=== PATIENT | female | born 1975 | race African-American/Black ===

== ENCOUNTER 2017-05-21 12:43 | Emergency (ER) | payer BC ==
[2017-05-21 12:50] VITALS: BP 181/114; PULSE 81; TEMP 97.9; BMI 37.5
--- NOTE | 2017-05-21 13:27 | PDOC ---
History of Present Illness - General Chief Complaint: Respiratory Stated Complaint: HEADACHE Time Seen by Provider: 05/21/17 13:12 History Source: Patient Exam Limitations: No Limitations - History of Present Illness Initial Comments: 05/21/17 13:28 This is a 41-year-old woman with past medical history of seasonal ALLERGIES and hypertension who presents to emergency department with nasal congestion, frontal headache, sinus pain for the past 14 days. Patient states over the past 5 days she has increased her use of loratadine as well as nasal decongestant spray. Patient also states intermittent use of her blood pressure medication due to side effects that she experiences. She denies any sick contacts. She denies fevers, chills, chest pain, shortness of breath, cough, dizziness. Past History - Past Medical History Allergies/Adverse Reactions: Allergies Allergy/AdvReac Type Severity Reaction Status Date / Time No Known Allergies Allergy Verified 05/21/17 12:50 Home Medications: Ambulatory Orders Hydrochlorothiazide [Hctz] 12.5 mg PO DAILY 10/08/11 Metoprolol Tartrate [Lopressor -] 40 mg PO DAILY 10/08/11 Metformin HCl 500 mg PO BID 11/12/14 Amox-Tr/K Cl [Augmentin - 875Mg Tablet] 1 tab PO BID #20 tablet 05/21/17 COPD: No Diabetes: Yes (pre diabetic) GI Disorders: Yes (ULCER.) HTN: Yes Thyroid Disease: Yes - Suicide/Smoking/Psychosocial Hx Smoking Status: No Smoking History: Never smoked Number of Cigarettes Smoked Daily: 0 Hx Alcohol Use: No Drug/Substance Use Hx: No Substance Use Type: None Respiratory Specific PMHX - Complaint Specific PMHX Bronchitis: No Review of Systems - Review of Systems Able to Perform ROS?: Yes Is the patient limited Maltese proficient: No Constitutional: No: Symptoms Reported HEENTM: Yes: See HPI Respiratory: No: Symptoms reported Cardiac (ROS): No: Symptoms Reported ABD/GI: No: Symptoms Reported : No: Symptoms Reported Musculoskeletal: No: Symptoms Reported Integumentary: No: Symptoms Reported Neurological: No: Symptoms reported Endocrine: No: Symptoms Reported *Physical Exam - Vital Signs Last Vital Signs Temp Pulse Resp BP Pulse Ox 97.9 F 81 18 181/114 100 05/21/17 12:46 05/21/17 12:46 05/21/17 12:46 05/21/17 12:46 05/21/17 12:46 - Physical Exam General Appearance: Yes: Appropriately Dressed. No: Apparent Distress HEENT: positive: TMs Normal, Pharynx Normal, Nasal Congestion, Sinus Tenderness Neck: positive: Trachea midline, Supple Respiratory/Chest: positive: Lungs Clear, Normal Breath Sounds. negative: Respiratory Distress, Accessory Muscle Use Cardiovascular: positive: Regular Rhythm, Regular Rate. negative: Murmur Gastrointestinal/Abdominal: positive: Normal Bowel Sounds, Soft. negative: Tender Musculoskeletal: positive: Normal Inspection. negative: CVA Tenderness Extremity: positive: Normal Capillary Refill, Normal Inspection, Normal Range of Motion Integumentary: positive: Normal Color, Dry, Warm Neurologic: positive: restaurant assistant II-XII NML intact, Fully Oriented, Alert, Normal Mood/ Affect, Normal Response, Motor Strength /5 Medical Decision Making - Medical Decision Making 05/21/17 13:30 A/P: 41-year-old female with history of hypertension and is analogies with 2 weeks of nasal congestion and sinus pain TMs within normal limits. External auditory canals clear and free of erythema or exudates. Oropharynx within normal limits. Tenderness to maxillary and frontal sinuses upon light palpation. Nasal congestion present. Lungs clear to auscultation bilaterally. RRR. No murmur, rub or gallop present. Abdomen soft nontender nondistended. Cranial nerves II through XII intact. Gait steady. Diagnosis of sinusitis Given onset of symptoms greater than 10 days I will treat the patient with Augmentin 875 twice a day for the next 10 days. Patient has been instructed to stop using her nasal decongestant spray given known rebound effect after 3 days of use. Patient instructed to use Coricidin to help with decongestant and not racer blood pressure. Discussion had with patient regarding her compliance with medications. He was explained to patient she needs to see her primary doctor for continued titration of her blood pressure dosages to remove side effects and increase her willingness to take the medications. *DC/Admit/Observation/Transfer Diagnosis at time of Disposition: Sinusitis Qualifiers: Sinusitis location: maxillary Chronicity: acute Recurrence: not specified as recurrent Qualified Code(s): J01.00 - Acute maxillary sinusitis, unspecified - Discharge Dispostion Disposition: HOME Condition at time of disposition: Stable Admit: No - Prescriptions Prescriptions: Amox-Tr/K Cl [Augmentin - 875Mg Tablet] 1 tab PO BID #20 tablet - Referrals Referrals: ON STAFF,NOT [Primary Care Provider] - - Patient Instructions Additional Instructions: Take Augmentin twice a day until all medications has been completed. Stop using your nasal spray. Avoid taking medications that contain phenylephrine. These medications are usually marked with a letter to PE. Use Coricidin to help with her nasal congestion which will not raise her blood pressure. Drink plenty of fluids. Make an appointment with her primary doctor for continued evaluation of your blood pressure. Return to emergency department for worsening pain, dizziness, headaches, nausea , vomiting, blurry vision, or any other concerns. - Post Discharge Activity
== END 2017-05-21 13:37 | disposition home or self-care (01) ==
LOC: JERFT 12:43
DX: J01.00 Acute maxillary sinusitis, unspecified (principal); J30.2 Other seasonal allergic rhinitis; I10 Essential (primary) hypertension; E11.9 Type 2 diabetes mellitus without complications; Z79.84 Long term (current) use of oral hypoglycemic drugs; Z87.19 Personal history of other diseases of the digestive system; E07.9 Disorder of thyroid, unspecified
CPT/HCPCS: 99281-25

== ENCOUNTER 2017-06-20 07:29 | Emergency (ER) | payer BC ==
[2017-06-20 07:37] VITALS: BP 157/110; PULSE 92; TEMP 98.6; BMI 37.5
--- NOTE | 2017-06-20 07:45 | PDOC ---
History of Present Illness - General Chief Complaint: Cold Symptoms Stated Complaint: THROAT AND EAR PAIN Time Seen by Provider: 06/20/17 07:44 History Source: Patient Exam Limitations: No Limitations - History of Present Illness Initial Comments: 06/20/17 07:44 41 yo F with history of HTN who presents with a 3-day history of subjective fevers, chills, earache and sore throat. Pt states she had a previous sinus infection about 2-3 weeks ago and was given Augmentin which she completed the full course. She was gonna followup with her primary medical physician (Dr. Stewart ), however could not get an appointment until July so she saw her ENT who gave her suspected steroid dose pack? Pt states she completed the course and now started to experience some subjective fevers and chills on Tuesday which developed into an earache. Pt reports having some seasonal allergies, however has never had testing. Pt denies any sick contacts, n/v/d/c, cough, SOB, CP/ discomfort, palpitations, abdominal pain. PCP: Dr. Stewart Past History - Past Medical History Allergies/Adverse Reactions: Allergies Allergy/AdvReac Type Severity Reaction Status Date / Time No Known Allergies Allergy Verified 06/20/17 07:30 Home Medications: Ambulatory Orders Hydrochlorothiazide [Hctz] 12.5 mg PO DAILY 10/08/11 Lisinopril [Prinivil -] 40 mg PO DAILY 06/20/17 COPD: No DVT: No Diabetes: Yes (pre diabetic) GI Disorders: Yes (ULCER.) HTN: Yes Thyroid Disease: Yes - Suicide/Smoking/Psychosocial Hx Smoking Status: No Smoking History: Never smoked Have you smoked in the past 12 months: No Number of Cigarettes Smoked Daily: 0 Information on smoking cessation initiated: No Hx Alcohol Use: No Drug/Substance Use Hx: No Substance Use Type: None Review of Systems - Review of Systems Constitutional: Yes: Chills, Fever, Malaise. No: Loss of Appetite, Night Sweats , Weakness HEENTM: Yes: Ear Pain, Nose Congestion, Throat Pain. No: Eye Pain, Blurred Vision, Ear Discharge, Nose Pain, Hearing Loss, Throat Swelling Respiratory: No: Cough, Shortness of Breath, Stridor, Wheezing Cardiac (ROS): No: Chest Pain, Edema, Lightheadedness, Palpitations, Syncope ABD/GI: No: Constipated, Diarrhea, Nausea, Vomiting, Abdominal cramping : No: Dysuria, Frequency, Flank Pain Musculoskeletal: No: Back Pain, Neck Pain Integumentary: No: Rash Neurological: No: Headache, Numbness, Tingling, Dizziness Psychiatric: No: Anxiety, Depression Hematologic/Lymphatic: No: Easy Bleeding, Easy Bruising *Physical Exam - Vital Signs Last Vital Signs Temp Pulse Resp BP Pulse Ox 98.6 F 92 H 18 157/110 100 06/20/17 07:32 06/20/17 07:32 06/20/17 07:32 06/20/17 07:32 06/20/17 07:32 - Physical Exam Comments: 06/20/17 07:48 Gen: NAD, awake, alert HEENT: EOMI, KINGSLEY, sclera anicteric, R ear erythema with bulging TM, L bulging TM without erythema noted, dry mucosa with erythema present in posterior oropharynx. Neck: No lymphadenopathy, No JVD LUNGS: CTA bilaterally CARDIAC: RRR no murmurs appreciated ABD: Soft, NT/ND, normoactive BS, no guarding EXT: No edema, 2+ DP pulses ED Treatment Course - LABORATORY CBC & Chemistry Diagram: 06/20/17 08:20 06/20/17 08:20 Medical Decision Making - Medical Decision Making 06/20/17 07:48 High suspicion for bacterial sinusitis vs. viral; questionable refractory to Augmentin? with risk factors of resistance (ABX in past month with recent steroid usage) --Levaquin 750mg PO In addition hypertensive urgency --CBC, BMP 06/20/17 09:11 BMP unremarkable Outpatient f/u *DC/Admit/Observation/Transfer Diagnosis at time of Disposition: Acute viral sinusitis - Discharge Dispostion Disposition: HOME Condition at time of disposition: Stable Admit: No - Referrals Referrals: ON STAFF,NOT [Primary Care Provider] - - Patient Instructions Additional Instructions: You were seen here for viral sinusitis You would best benefit from using: A dorita pot as directed Flonase over the counter taken as directed as needed for sinus congestion Motrin over the counter taken as directed Please return for any high fevers above 101*F, shortness of breath, or other concerning symptoms Please follow-up with your primary care provider for your high blood pressure as they may want to adjust medications - Post Discharge Activity Forms/Work/School Notes: Back to Work
[2017-06-20] MEDS ORDERED: levoFLOXacin 750 MG TABLET PO ONE (08:22)
[2017-06-20 08:25] LABS: BASO % 0.8 % (0-2.0); EOS % 5.9 % (0-4.5); HEMATOCRIT 40.6 % (32.4-45.2); HEMOGLOBIN 14.2 GM/dL (10.7-15.3); LYMPH % 36.4 % (8-40); MCH 31.6 pg (25.7-33.7); MEAN CELL VOLUME 90.2 fl (80-96); MEAN PLT VOLUME 8.5 fl (7.5-11.1); NEUT % 44.9 % (42.8-82.8); PLATELET COUNT 220 K/MM3 (134-434); RDW 13.5 % (11.6-15.6); WHITE BLOOD COUNT 4.1 K/mm3 (4.0-10.0)
[2017-06-20 08:58] LABS: ANION GAP 6 (8-16); BLOOD UREA NITROGEN 6 mg/dL (7-18); CALCIUM 8.8 mg/dL (8.5-10.1); CHLORIDE 108 mmol/L (98-107); CO2 27 mmol/L (21-32); CREATININE 0.7 mg/dL (0.55-1.02); GLUCOSE,RANDOM 133 mg/dL (74-106); POTASSIUM 3.6 mmol/L (3.5-5.1); SODIUM 141 mmol/L (136-145)
--- NOTE | 2017-06-20 09:48 | PDOC ---
Attending Attestation - HPI HPI: 06/20/17 09:55 The patient is a 41 year old female with a significant PMH of HTN who presents to the emergency department with earache, nasal congestion, sore throat, and chills beginning approximately 3 days ago. She also notes a subjective fever since yesterday with associated headache. The patient notes she had a sinus infection within the past 2 weeks which was treated with Augmentin. The patient denies any chest pain or shortness of breath. She denies nausea, vomiting, or diarrhea. Allergies: NKA PCP: Dr. Stewart - Physicial Exam PE: 06/20/17 10:16 Vitals: Triage Vital signs reviewed General Appearance: no acute distress, well nourished well developed, Head: Atraumatic, normocephalic Ears: TM's normal bilaterally; Nose: (+) Sinus tenderness. Nares patent bilaterally;no nasal congestion Throat: Posterior oropharynx without erythema, mucous membranes moist, Cardiac: Regular rate and rhythm, no murmurs, no rubs, no gallops, Lungs: Clear to auscultation bilateral, good air movement bilaterally, Abdomen: Soft, nondistended, normal bowel sounds, nontender to palpation Extremities: Full range of motion to all extremities, no cyanosis, clubbing, or edema Skin: Warm and dry, no rashes or lesions, no petechiae Neuro: AOX3; Cranial Nerves 2-12 grossly intact, Strength intact to all extremities, Sensation intact to all extremities Psych: normal mood, normal affect. <Oleg Ramirez - Last Filed: 06/20/17 10:16> - Resident Resident Name: Seng Bhatt - ED Attending Attestation I have performed the following: I have examined & evaluated the patient, The case was reviewed & discussed with the resident, I agree w/resident's findings & plan, Exceptions are as noted - Medical Decision Making 06/20/17 16:27 History examination consistent with viral sinusitis. No indication for antibiotics at this time patient well-appearing no apparent distress we'll recommend Flonase as well as Stephanie pot and outpatient follow-up with ENT Findings, the need for follow-up and strict return instructions discussed with patient. <Remberto Jaimes - Last Filed: 06/20/17 16:27>
[2017-06-20] MEDS ORDERED: IBUPROFEN 600 MG TABLET (FP) PO ONE ×2 (10:11→10:14)
== END 2017-06-20 10:25 | disposition home or self-care (01) ==
LOC: JER 07:29
DX: J01.80 Other acute sinusitis (principal); B97.89 Other viral agents as the cause of diseases classified elsewhere; I10 Essential (primary) hypertension; R73.03 Prediabetes; E07.9 Disorder of thyroid, unspecified
CPT/HCPCS: 36415; 80048; 85025; 99282-25